=== PATIENT | male | born 1965 | race Caucasian/White ===

== ENCOUNTER 2017-06-01 12:10 | Emergency (ER) | payer BC ==
[2017-06-01 12:16] VITALS: BP 127/77; PULSE 100; RESP 18; TEMP 98.2; O2SAT 98
[2017-06-01] MEDS ORDERED: Absorbable Gelatin Sponge Size 12-7 TP STA (12:40)
[2017-06-01] MEDS ORDERED: Absorbable Gelatin Sponge Size 12-7 ONE (12:42)
--- NOTE | 2017-06-01 12:42 | ED PDOC ---
Upper Extremity Pain/Injury Time Seen by Provider: 06/01/17 12:25 Chief Complaint (Nursing): Finger,Hand,&Wrist Chief Complaint (Provider): Avulsion laceration to finger History Per: Patient History/Exam Limitations: no limitations Onset/Duration Of Symptoms: Mins (prior to arrival) Current Symptoms Are (Timing): Still Present Additional Complaint(s): Bill Travis is a 51-year-old left hand dominant male who presents to the emergency department with an avulsion laceration to his left 5th digit. The laceration was sustained at work when he cut himself on a piece of ceramic. His tetanus is up to date. He denies any acute pain or numbness/tingling to affected area. PMD: Dr. Justin Cadena Past Medical History Reviewed: Historical Data, Nursing Documentation, Vital Signs Vital Signs: Last Vital Signs Temp 98.2 F 06/01/17 12:14 Pulse 100 H 06/01/17 12:14 Resp 18 06/01/17 12:14 BP 127/77 06/01/17 12:14 Pulse Ox 98 06/01/17 12:14 - Medical History PMH: Diabetes, HTN, Hypercholesterolemia - Surgical History Surgical History: No Surg Hx - Family History Family History: States: No Known Family Hx - Living Arrangements Living Arrangements: With Family - Social History Current smoker - smoking cessation education provided: No Alcohol: None Drugs: Denies - Immunization History Hx Tetanus Toxoid Vaccination: Yes (booster given 3 months ago) Hx Influenza Vaccination: Yes Hx Pneumococcal Vaccination: No - Home Medications Home Medications: Ambulatory Orders Medication Instructions Recorded Aspirin [Aspirin Chewable] 81 mg PO DAILY #0 chew 09/17/15 Glyburide [Micronase] 1.25 mg PO BID #0 tab 09/17/15 Losartan [Cozaar] 50 mg PO DAILY #0 tab 09/17/15 Metoprolol Tartrate [Lopressor] 25 mg PO BID #0 tab 09/17/15 Simvastatin 40 mg PO DAILY #30 tab 09/17/15 metFORMIN [glucOPHAGE] 500 mg PO BID #0 tab 09/17/15 - Allergies Allergies/Adverse Reactions: Allergies Allergy/AdvReac Type Severity Reaction Status Date / Time No Known Allergies Allergy Verified 09/15/15 12:10 Review of Systems ROS Statement: Except As Marked, All Systems Reviewed And Found Negative Skin: Positive for: Other (avulsion laceration to left 5th digit) Physical Exam - Reviewed Nursing Documentation Reviewed: Yes Vital Signs Reviewed: Yes - Physical Exam Appears: Positive for: Non-toxic, No Acute Distress Head Exam: Positive for: ATRAUMATIC, NORMOCEPHALIC Skin: Positive for: Normal Color. Negative for: Rash Extremity: Positive for: Other (2 cm avulsion laceration to the dorsal aspect of the left 5th digit with mild active bleeding, full rom of affected digit, fingernail intact) Neurologic/Psych: Positive for: Alert, Oriented - ECG O2 Sat by Pulse Oximetry: 98 (RA) Pulse Ox Interpretation: Normal Medical Decision Making Medical Decision Making: Time: 12:40 Clinical Impression: Skin avulsion Initial Plan: * Procedure Note: wound cleansed with saline, gel foam applied overlying open wound, secured with gauze wrap, N/V intact s/p placement. Good bleeding control achieved. Procedure was tolerated well by patient. Patient was given wound care instructions and was referred to hand internal control consultant for follow up. Scribe Attestation: Documented by Cheryl Leyva, acting as a scribe for Nathalia Sigala PA-C Provider Scribe Attestation: All medical record entries made by the Scribe were at my direction and personally dictated by me. I have reviewed the chart and agree that the record accurately reflects my personal performance of the history, physical exam, medical decision making, and the department course for this patient. I have also personally directed, reviewed, and agree with the discharge instructions and disposition. Disposition - Clinical Impression Clinical Impression: Skin avulsion - Patient ED Disposition Is Patient to be Admitted: No Counseled Patient/Family Regarding: Diagnosis, Need For Followup - Disposition Referrals: Kenyatta Hensley MD [Staff Provider] - Disposition: Routine/Home Disposition Time: 13:37 Condition: STABLE Additional Instructions: Keep bandage in place for 2 days. After 2 days with gauze and gel foam and wound will continue to heel from there. Advil as needed for pain. Follow up with primary care doctor or with hand specialist in 2-3 days. Instructions: Skin Avulsion (ED) Forms: [employer] (Arabic), [facility] ED School/Work Excuse
== END 2017-06-01 13:50 | disposition home or self-care (01) ==
LOC: H.ER 12:10
DX: S61.216A Laceration without foreign body of right little finger without damage to nail, initial encounter (principal); W26.0XXA Contact with knife, initial encounter; Y99.0 Civilian activity done for income or pay; E11.9 Type 2 diabetes mellitus without complications; Z79.84 Long term (current) use of oral hypoglycemic drugs; E78.00 Pure hypercholesterolemia, unspecified; I10 Essential (primary) hypertension; Z79.82 Long term (current) use of aspirin

== ENCOUNTER 2018-08-23 08:40 | Emergency (ER) | payer BC ==
[2018-08-23 08:55] VITALS: TEMP 97.5
[2018-08-23 08:56] VITALS: BMI 35.5
[2018-08-23 09:22] VITALS: BP 122/88; PULSE 93; RESP 19
[2018-08-23 09:23] VITALS: O2SAT 98
--- NOTE | 2018-08-23 09:23 | ED PDOC ---
HPI: CCC, URI, Sore Throat Time Seen by Provider: 08/23/18 09:06 Chief Complaint (Nursing): Headache History Per: Patient History/Exam Limitations: no limitations Onset/Duration Of Symptoms: Days (1) Current Symptoms Are (Timing): Better Additional Complaint(s): 53 year old with hx of NIDDM presenting with nosebleed, states that he has a "cold" and that it is causing him to have a "pinched nerve" in his upper bask causing him upper back pain, headache, as well as runny nose, nasal congestion, dizziness. Patient states his feet are cold despite wearing two layers of socks and thinks he might have "Berry bite". Denies cough, chest pain, shortness of breath. States he had subjective fevers. Took no medications today other than his regular metformin. PMD: Dr. Cadena Past Medical History Vital Signs: Last Vital Signs Temp 97.5 F L 08/23/18 08:55 Pulse 101 H 08/23/18 08:55 Resp 20 08/23/18 08:55 BP 149/90 08/23/18 08:55 Pulse Ox 98 08/23/18 08:55 - Medical History PMH: Diabetes, HTN, Hypercholesterolemia Denies: Chronic Kidney Disease - Family History Family History: States: Unknown Family Hx - Immunization History Hx Tetanus Toxoid Vaccination: Yes (booster given 3 months ago) Hx Influenza Vaccination: Yes Hx Pneumococcal Vaccination: No - Home Medications Home Medications: Ambulatory Orders Medication Instructions Recorded Aspirin [Aspirin Chewable] 81 mg PO DAILY #0 chew 09/17/15 Glyburide [Micronase] 1.25 mg PO BID #0 tab 09/17/15 Losartan [Cozaar] 50 mg PO DAILY #0 tab 09/17/15 Metoprolol Tartrate [Lopressor] 25 mg PO BID #0 tab 09/17/15 Simvastatin 40 mg PO DAILY #30 tab 09/17/15 metFORMIN [glucOPHAGE] 500 mg PO BID #0 tab 09/17/15 Ibuprofen [Motrin Tab] 600 mg PO Q6 #30 tab 08/23/18 - Allergies Allergies/Adverse Reactions: Allergies Allergy/AdvReac Type Severity Reaction Status Date / Time No Known Allergies Allergy Verified 09/15/15 12:10 Review of Systems ROS Statement: Except As Marked, All Systems Reviewed And Found Negative Constitutional: Positive for: Fever Musculoskeletal: Positive for: Back Pain Neurological: Positive for: Headache. Negative for: Weakness, Numbness, Seizures, Altered Mental Status Physical Exam - Reviewed Nursing Documentation Reviewed: Yes Vital Signs Reviewed: Yes - Physical Exam Appears: Positive for: Well, Non-toxic, No Acute Distress Head Exam: Positive for: ATRAUMATIC, NORMAL INSPECTION, NORMOCEPHALIC Skin: Positive for: Normal Color, Warm, DRY Eye Exam: Positive for: Normal appearance, EOMI, PERRL, Other (Dried blood in R nare) ENT: Positive for: Normal ENT Inspection Neck: Positive for: Normal, Painless ROM Cardiovascular/Chest: Positive for: Regular Rate, Rhythm Respiratory: Positive for: CNT, Normal Breath Sounds Gastrointestinal/Abdominal: Positive for: Normal Exam, Soft Back: Positive for: Normal Inspection Extremity: Positive for: Normal ROM, Other (Normal extremeties, distal extremeties show no breakdown, swelling, discoloration, erythema of skin; feet/hands normal appearing) Neurologic/Psych: Positive for: Alert, Oriented - ECG O2 Sat by Pulse Oximetry: 98 Pulse Ox Interpretation: Normal Medical Decision Making Medical Decision Making: Hx of DM presenting with resolved nosebleed and various symptoms of cold --Patient is very well appearing with stable vitals, afebrile, normal BP --Nontoxic appearance --Likely patient suffering from maladies of common cold, no frostbite seen --Advised patient to use NSAIDs and strict followup with Dr. Cadena tomorrow Disposition - Clinical Impression Clinical Impression: Viral illness - Patient ED Disposition Is Patient to be Admitted: No - Disposition Referrals: Lilliam Cadena MD [Primary Care Provider] - Disposition: Routine/Home Disposition Time: 09:28 Condition: GOOD Additional Instructions: See Dr. Cadena TOMORROW for a check-up. Prescriptions: Ibuprofen [Motrin Tab] 600 mg PO Q6 #30 tab Instructions: Cough, Runny Nose, and the Common Cold (DC) Forms: [employer] (Croatian) Print Language: GEORGIAN
== END 2018-08-23 09:47 | disposition home or self-care (01) ==
LOC: SUPCPDRO 08:40 → H.ER 08:40
DX: B34.9 Viral infection, unspecified (principal); E11.9 Type 2 diabetes mellitus without complications; E78.00 Pure hypercholesterolemia, unspecified; I10 Essential (primary) hypertension; Z79.84 Long term (current) use of oral hypoglycemic drugs